=== PATIENT | male | born 1990 | race Caucasian/White ===

== ENCOUNTER 2017-05-14 14:15 | Emergency (ER) | payer MEDICAID ==
[~2017-05-14] VITALS: Ht 167.6 cm; Wt 68.2 kg
[2017-05-14] MEDS ORDERED: penicillin V potassium 500mg tablet PO ONE (14:40)
[2017-05-14] MEDS ORDERED: HYDROcodone/acetaminophen 10/325mg tab PO ONE (14:40)
[2017-05-14] MEDS ORDERED: PENI500T2 PO (14:43)
[2017-05-14 15:16] VITALS: BP 136/85
== END 2017-05-14 15:17 | disposition home or self-care (01) ==
LOC: ER 14:15
DX: K08.89 Other specified disorders of teeth and supporting structures (principal); J20.9 Acute bronchitis, unspecified; F17.200 Nicotine dependence, unspecified, uncomplicated; Z86.19 Personal history of other infectious and parasitic diseases
CPT/HCPCS: 99283